=== PATIENT | female | born 1945 | race Caucasian/White ===

== ENCOUNTER 2017-07-25 14:24 | Emergency (ER) | payer MEDICARE, BC ==
[2017-07-25] MEDS ORDERED: HYDROmorphone 0.5 MG/0.5 ML Syringe IVPUSH ONE ×2 (15:06→16:31)
[2017-07-25] MEDS ORDERED: Ondansetron 4 MG/2 ML SDV IVPUSH ONE (15:07)
--- NOTE | 2017-07-25 15:12 | EDM.PDOC ---
ED HPI GENERAL MEDICAL PROBLEM - General Chief Complaint: Abdominal Pain Stated Complaint: GALLBLADDER ATTACK?? Time Seen by Provider: 07/25/17 15:09 Source of Information: Reports: Patient History Limitations: Reports: No Limitations - History of Present Illness INITIAL COMMENTS - FREE TEXT/NARRATIVE: pt arrived with pain accross her entire abdoman. On palpation the pain seemes more on the rt side. She did become very sweaty and felt like she could even pass out. Onset: Today, Sudden, Other ( she did have a similar episode 2 weeks ago and it went away and she did not have a roccurrence until now. ) Duration: Hour(s):, Getting Worse Location: Reports: Abdomen Associated Symptoms: Reports: Nausea/Vomiting, Weakness Lower Abdomen Pain Score (Numeric/FACES): 3 - Related Data Allergies Allergy/AdvReac Type Severity Reaction Status Date / Time azithromycin [From Zithromax] Allergy Severe Rash Verified 10/09/13 10:39 cephalexin [Cephalexin] Allergy Severe Rash Verified 10/09/13 10:39 amoxicillin [Amoxicillin] Allergy Mild Rash Verified 10/09/13 10:39 Penicillins Allergy Rash Verified 10/09/13 10:39 Sulfa (Sulfonamide Allergy Rash Verified 10/09/13 10:39 Antibiotics) Home Meds: Home Meds Aspirin [Adult Low Dose Aspirin EC] 81 mg PO DAILY 10/09/13 [History] Hydrochlorothiazide [Hydrochlorothiazide] 1 tab PO ASDIRECTED 10/09/13 [History] Pravastatin [Pravachol] 1 tab PO BEDTIME 10/09/13 [History] Triamterene/Hydrochlorothiazid [Triamterene-HCTZ 37.5-25 MG] 1 each PO DAILY 01/15 [History] Loratadine [Claritin] 1 tab PO DAILY 07/25/17 [History] Metoprolol Succinate [Toprol XL] 1 tab PO DAILY 07/25/17 [History] Naltrexone HCl/Bupropion HCl [Contrave ER 8-90 mg Tablet] 2 tab PO BID 07/25/17 [History] Omeprazole 1 tab PO DAILY 07/25/17 [History] Past Medical History HEENT History: Reports: Impaired Vision Cardiovascular History: Reports: High Cholesterol, Hypertension Respiratory History: Reports: Bronchitis, Recurrent, Pneumonia, Recurrent Gastrointestinal History: Reports: GERD [employer]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: Musculoskeletal History: Reports: Fracture - Past Surgical History HEENT Surgical History: Reports: Tonsillectomy GI Surgical History: Reports: Colonoscopy Musculoskeletal Surgical History: Reports: Ganglion Cyst Social & Family History - Tobacco Use Smoking Status *Q: Never Smoker - Recreational Drug Use Recreational Drug Use: No ED ROS GENERAL - Review of Systems Review Of Systems: See Below Constitutional: Reports: No Symptoms, Decreased Appetite HEENT: Reports: No Symptoms Respiratory: Reports: No Symptoms Cardiovascular: Reports: No Symptoms Endocrine: Reports: No Symptoms GI/Abdominal: Reports: Abdominal Pain, Other ( Pt has severe abdomanal pain accross the lower abdoman. ) : Reports: No Symptoms Musculoskeletal: Reports: No Symptoms Skin: Reports: No Symptoms ED EXAM, GI/ABD - Physical Exam Exam: See Below Text/Narrative:: pt arrived with pain in the lower abdoman. She states it comes on suddenly and is very severe. She feels like it goes accross the entire abdoman. Exam Limited By: No Limitations General Appearance: Alert, Anxious, Severe Distress, Other ( Pt was very diaphoretic when the pain was present. ) Ears: Normal TMs Nose: Normal Inspection Throat/Mouth: Normal Inspection Head: Atraumatic Neck: Normal Inspection Respiratory/Chest: No Respiratory Distress Cardiovascular: Regular Rate, Rhythm GI/Abdominal Exam: Tender, Other (pt has tendernessmore on the rt side. ) (Female) Exam: Deferred Rectal (Female) Exam: Deferred Back Exam: Normal Inspection Extremities: Normal Inspection Neurological: Alert, Oriented, Normal Cognition Course - Vital Signs Last Recorded V/S: Last Vital Signs Temp 35 C L 07/25/17 14:35 Pulse 85 07/25/17 17:32 Resp 16 07/25/17 17:32 BP 152/71 H 07/25/17 17:32 Pulse Ox 97 07/25/17 17:32 - Orders/Labs/Meds Orders: Active Orders 24 hr Category Date Time Status Abdomen Ltd [US] Stat Exams 07/25/17 15:07 Taken Abdomen Pelvis w Cont [CT] Stat Exams 07/25/17 16:22 Taken Iopamidol [Isovue-300 (61%)] Med 07/25/17 16:45 Active 150 ml IV . DIRECTED Sodium Chloride 0.9% [Normal Saline] 1,000 ml Med 07/25/17 16:15 Active IV ASDIRECTED Sodium Chloride 0.9% [Normal Saline] 80 ml Med 07/25/17 16:45 Active IV ASDIRECTED Sodium Chloride 0.9% [Saline Flush] Med 07/25/17 16:32 Active 10 ml FLUSH ASDIRECTED PRN Medication Orders Sodium Chloride (Normal Saline) 1,000 mls @ 999 mls/hr IV ASDIRECTED THOMAS Last Admin: 07/25/17 17:08 Dose: 999 mls/hr Sodium Chloride (Normal Saline) 80 mls @ 3 mls/sec IV ASDIRECTED THOMAS Last Admin: 07/25/17 16:48 Dose: 3 mls/sec Iopamidol (Isovue-300 (61%)) 150 ml IV . DIRECTED THOMAS Last Admin: 07/25/17 16:48 Dose: 150 ml Sodium Chloride (Saline Flush) 10 ml FLUSH ASDIRECTED PRN PRN Reason: Keep Vein Open Last Admin: 07/25/17 16:48 Dose: 10 ml Labs: Laboratory Tests 07/25/17 07/25/17 07/25/17 Range/Units 14:31 14:53 14:53 WBC 7.8 (4.5-11.0) K/uL RBC 5.02 (3.30-5.50) M/uL Hgb 14.7 (12.0-15.0) g/dL Hct 45.1 (36.0-48.0) % MCV 90 (80-98) fL MCH 29 (27-31) pg MCHC 33 (32-36) % Plt Count 260 (150-400) K/uL Neut % (Auto) 75 H (36-66) % Lymph % (Auto) 16 L (24-44) % [place] % (Auto) 6 (2-6) % Eos % (Auto) 2 (2-4) % Baso % (Auto) 0 (0-1) % Sodium (140-148) mmol/L Potassium (3.6-5.2) mmol/L Chloride (100-108) mmol/L Carbon Dioxide (21-32) mmol/L Anion Gap (5.0-14.0) mmol/L BUN (7-18) mg/dL Creatinine (0.6-1.0) mg/dL Est Cr Clr Drug Dosing mL/min Estimated GFR (MDRD) (>60) Glucose (74-106) mg/dL Calcium (8.5-10.1) mg/dL Total Bilirubin (0.2-1.0) mg/dL AST (15-37) U/L ALT (12-78) U/L Alkaline Phosphatase (46-116) U/L C-Reactive Protein 0.64 H (0.0-0.3) mg/dL Total Protein (6.4-8.2) g/dL Albumin (3.4-5.0) g/dL Globulin (2.3-3.5) g/dL Albumin/Globulin Ratio (1.2-2.2) Amylase (25-115) U/L Lipase (73-393) U/L Urine Color Yellow Urine Appearance Clear Urine pH 8.0 (4.5-8.0) Ur Specific [place] 1.015 (1.008-1.030) Urine Protein Negative (NEGATIVE) mg/dL Urine Glucose (UA) Normal (NEGATIVE) mg/dL Urine Ketones Negative (NEGATIVE) mg/dL Urine Occult Blood Negative (NEGATIVE) Urine Nitrite Negative (NEGATIVE) Urine Bilirubin Negative (NEGATIVE) Urine Urobilinogen 1 (NORMAL) mg/dL Ur Leukocyte Esterase Negative (NEGATIVE) Urine RBC 0-5 (0-5) Urine WBC 0-5 (0-5) Ur Epithelial Cells Rare Amorphous Sediment Few Urine Bacteria Rare Urine Mucus Few 07/25/17 07/25/17 Range/Units 14:53 15:08 WBC (4.5-11.0) K/uL RBC (3.30-5.50) M/uL Hgb (12.0-15.0) g/dL Hct (36.0-48.0) % MCV (80-98) fL MCH (27-31) pg MCHC (32-36) % Plt Count (150-400) K/uL Neut % (Auto) (36-66) % Lymph % (Auto) (24-44) % [place] % (Auto) (2-6) % Eos % (Auto) (2-4) % Baso % (Auto) (0-1) % Sodium 144 (140-148) mmol/L Potassium 3.5 L (3.6-5.2) mmol/L Chloride 104 (100-108) mmol/L Carbon Dioxide 31 (21-32) mmol/L Anion Gap 12.5 (5.0-14.0) mmol/L BUN 25 H (7-18) mg/dL Creatinine 1.1 H (0.6-1.0) mg/dL Est Cr Clr Drug Dosing 41.09 mL/min Estimated GFR (MDRD) 49 L (>60) Glucose 108 H (74-106) mg/dL Calcium 9.7 (8.5-10.1) mg/dL Total Bilirubin 0.7 (0.2-1.0) mg/dL AST 20 (15-37) U/L ALT 25 (12-78) U/L Alkaline Phosphatase 95 (46-116) U/L C-Reactive Protein (0.0-0.3) mg/dL Total Protein 6.8 (6.4-8.2) g/dL Albumin 3.7 (3.4-5.0) g/dL Globulin 3.1 (2.3-3.5) g/dL Albumin/Globulin Ratio 1.2 (1.2-2.2) Amylase 76 (25-115) U/L Lipase 89 (73-393) U/L Urine Color Urine Appearance Urine pH (4.5-8.0) Ur Specific [place] (1.008-1.030) Urine Protein (NEGATIVE) mg/dL Urine Glucose (UA) (NEGATIVE) mg/dL Urine Ketones (NEGATIVE) mg/dL Urine Occult Blood (NEGATIVE) Urine Nitrite (NEGATIVE) Urine Bilirubin (NEGATIVE) Urine Urobilinogen (NORMAL) mg/dL Ur Leukocyte Esterase (NEGATIVE) Urine RBC (0-5) Urine WBC (0-5) Ur Epithelial Cells Amorphous Sediment Urine Bacteria Urine Mucus Meds: Medications Generic Name Dose Route Start Last Admin Trade Name Freq PRN Reason Stop Dose Admin Sodium Chloride 1,000 mls @ 999 mls/hr 07/25/17 16:15 07/25/17 17:08 Normal Saline IV 999 mls/hr ASDIRECTED THOMAS Administration Sodium Chloride 80 mls @ 3 mls/sec 07/25/17 16:45 07/25/17 16:48 Normal Saline IV 3 mls/sec ASDIRECTED THOMAS Administration Iopamidol 150 ml 07/25/17 16:45 07/25/17 16:48 Isovue-300 (61%) IV 150 ml . DIRECTED THOMAS Administration Sodium Chloride 10 ml 07/25/17 16:32 11/21/17 16:48 Saline Flush FLUSH 10 ml ASDIRECTED PRN Administration Keep Vein Open Discontinued Medications Generic Name Dose Route Start Last Admin Trade Name Bill PRN Reason Stop Dose Admin Hydromorphone HCl 0.5 mg 07/25/17 15:06 07/25/17 15:16 Dilaudid IVPUSH 07/25/17 15:07 0.5 mg ONETIME ONE Administration Hydromorphone HCl 0.5 mg 07/25/17 16:31 07/25/17 17:11 Dilaudid IVPUSH 07/25/17 16:32 0.5 mg ONETIME ONE Administration Magnesium Citrate 296 ml 07/25/17 17:45 Citrate Of Magnesia PO 07/25/17 17:46 ONETIME ONE Ondansetron HCl 4 mg 07/25/17 15:07 07/25/17 15:12 Zofran IVPUSH 07/25/17 15:08 4 mg ONETIME ONE Administration - Re-Assessments/Exams Free Text/Narrative Re-Assessment/Exam: 07/25/17 16:15 us of the gb was normal. Her crp is mildly elevated. Her creatnine is elevated. She does look on the dry side. Will give a liter of fluid. 07/25/17 17:44 cat scan showed alot of stool present. , no other abnormalities. 07/25/17 17:52 pt had a stool after the cat scan which seemed like a hard plug and she felt better after that. Departure - Departure Time of Disposition: 17:50 Disposition: Home, Self-Care 01 Condition: Fair Clinical Impression: Constipation - Discharge Information Referrals: PCP,None [Primary Care Provider] - Forms: ED Department Discharge Care Plan Goals: push fluids, increase fiber in diet, prunes daily, use miralax as needed. rtc if increased probl. - My Orders Last 24 Hours: My Active Orders 07/25/17 15:07 Abdomen Ltd [US] Stat 07/25/17 16:15 Sodium Chloride 0.9% [Normal Saline] 1,000 ml IV ASDIRECTED 07/25/17 16:22 Abdomen Pelvis w Cont [CT] Stat 07/25/17 16:32 Sodium Chloride 0.9% [Saline Flush] 10 ml FLUSH ASDIRECTED PRN 07/25/17 16:45 Iopamidol [Isovue-300 (61%)] 150 ml IV . DIRECTED Sodium Chloride 0.9% [Normal Saline] 80 ml IV ASDIRECTED - Assessment/Plan Last 24 Hours: My Active Orders 07/25/17 15:07 Abdomen Ltd [US] Stat 07/25/17 16:15 Sodium Chloride 0.9% [Normal Saline] 1,000 ml IV ASDIRECTED 07/25/17 16:22 Abdomen Pelvis w Cont [CT] Stat 07/25/17 16:32 Sodium Chloride 0.9% [Saline Flush] 10 ml FLUSH ASDIRECTED PRN 07/25/17 16:45 Iopamidol [Isovue-300 (61%)] 150 ml IV . DIRECTED Sodium Chloride 0.9% [Normal Saline] 80 ml IV ASDIRECTED
[2017-07-25] MEDS ORDERED: Sodium Chloride 0.9% 1,000 ML IV SCH (16:15)
[2017-07-25] MEDS ORDERED: Sodium Chloride 0.9% 10 ML Syringe FLUSH PRN (16:32)
[2017-07-25] MEDS ORDERED: Sodium Chloride 0.9% 80 ML IV SCH (16:45)
[2017-07-25] MEDS ORDERED: Iopamidol 612 MG/ML 150 ML Bottle IV SCH (16:45)
[2017-07-25] MEDS ORDERED: Magnesium Citrate Solution 296 ML Bottle PO ONE (17:45)
--- NOTE | 2017-07-26 10:08 | US ---
Abdomen Ltd HISTORY: Abdominal pain COMPARISON: None FINDINGS: Diffuse fatty liver. The gallbladder demonstrates no shadowing gallstones. No gallbladder w all thickening. Common bile duct is normal in caliber. Visualized pancreas unremarkable. The right ki dney, inferior vena cava appear normal. No ascites. Impression: 1. Diffuse fatty infiltration the liver. The remainder the study is unremarkable.
== END 2017-07-25 18:06 | disposition home or self-care (01) ==
LOC: JP.ED 14:24
DX: K59.00 Constipation, unspecified (principal); I10 Essential (primary) hypertension; E78.00 Pure hypercholesterolemia, unspecified; Z79.82 Long term (current) use of aspirin; Z79.899 Other long term (current) drug therapy; Z88.0 Allergy status to penicillin; Z88.2 Allergy status to sulfonamides; Z88.1 Allergy status to other antibiotic agents
CPT/HCPCS: 36415; 74177; 76705; 80053; 81001; 82150; 83690; 85025; 86140; 96361; 96374; 96375; 96376; 99283; 99284; J1170; J2405; J7030; J7040; J7050

== ENCOUNTER 2022-05-13 07:04 | Day surgery (SDC) | payer MEDICARE ==
[2022-05-13] MEDS ORDERED: Midazolam 1 MG/ML 2 ML SDV ONE (07:34)
[2022-05-13] MEDS ORDERED: Propofol 200 MG/20 ML SDV ONE (07:34)
[2022-05-13] MEDS ORDERED: fentaNYL 100 MCG/2 ML SDV ONE (07:34)
[2022-05-13] MEDS ORDERED: Sodium Chloride 0.9% 1,000 ML IV SCH (07:45)
== END 2022-05-13 11:29 | disposition home or self-care (01) ==
LOC: JP.SDS 07:04
PROVIDERS: ATTEND Surgery
DX: Z12.11 Encounter for screening for malignant neoplasm of colon (principal); K63.89 Other specified diseases of intestine; I10 Essential (primary) hypertension
CPT/HCPCS: G0121; J2250; J2704; J3010; J7030

== ENCOUNTER 2024-03-30 14:45 | Emergency (ER) | payer MEDICARE ==
[2024-03-30 16:02] LABS: BASOPHILS ABSOLUTE AUTO 0.06 K/uL (0.00-0.10); BASOPHILS PERCENT AUTO 0.8 % (0.1-1.3); EOSINOPHILS PERCENT AUTO 3.8 % (0.0-5.4); HEMATOCRIT 43.3 % (34.3-46.0); HEMOGLOBIN 14.7 g/dL (11.2-15.5); IMMATURE GRAN ABSOLUTE AUTO 0.03 K/uL (0.00-0.23); IMMATURE GRAN PERCENT AUTO 0.4 % (0.0-0.7); LYMPHOCYTES ABSOLUTE AUTO 1.92 K/uL (0.8-3.3); LYMPHOCYTES PERCENT AUTO 24.2 % (11.4-47.7); MEAN CORPUSCULAR HEMOGLOBIN 30.1 pg (31.6-35.5); MEAN CORPUSCULAR HGB CONC 33.9 g/dL (31.6-35.5); MEAN CORPUSCULAR VOLUME 88.5 fL (81.4-99.0); MONOCYTES ABSOLUTE AUTO 0.75 K/uL (0.20-0.90); MONOCYTES PERCENT AUTO 9.4 % (3.3-12.6); NEUTROPHILS ABSOLUTE AUTO 4.89 K/uL (1.0-7.6); NEUTROPHILS PERCENT AUTO 61.4 % (40.0-78.1); PLATELET COUNT,PLT 275 K/uL (130-375); RED BLOOD CELL COUNT 4.89 M/uL (3.77-5.24)
[2024-03-30 16:07] LABS: BASE EXCESS VENOUS 6.9 mm/L; BICARBONATE,VENOUS 31.3 mmol/L; CARBOXYHEMOGLOBIN 2.7 % (0.0-1.6); METHEMOGLOBIN 0.7 %; O2 SATURATION VENOUS 80.3; OXYHEMOGLOBIN 77.6 %; PCO2 VENOUS 44.3 mm/Hg; PH,VENOUS 7.463 (7.350-7.450); PO2 VENOUS 44.5 mm/Hg; TOTAL HEMOGLOBIN 15.4 g/dL (12.0-16.0)
[2024-03-30 16:48] LABS: A/G RATIO 1.1 (1.2-2.2); ALANINE AMINOTRANSFERASE,ALT 27 U/L (12-78); ALBUMIN 3.9 g/dL (3.4-5.0); ALKALINE PHOSPHATASE 88 U/L (46-116); ASPARTATE AMNIOTRANSFERASE,AST 19 U/L (15-37); BILIRUBIN TOTAL 0.7 mg/dL (0.2-1.0); BLOOD UREA NITROGEN,BUN 21 mg/dL (7-18); CARBON DIOXIDE,CO2 31 mmol/L (21-32); CHLORIDE,CL 102 mmol/L (100-108); CREATININE 1.1 mg/dL (0.6-1.0); EST CRCL DRUG DOSING (CG) 34.41 mL/min; ESTIMATED GFR 52 mL/min (>60); GLUCOSE RANDOM 141 mg/dL (74-106); PROTEIN TOTAL,TP 7.4 g/dL (6.4-8.2); SODIUM,NA 142 mmol/L (140-148); TROPONIN I HIGH SENSITIVITY 10.7 pg/mL (<=60.3)
== END 2024-03-30 17:42 | disposition home or self-care (01) ==
LOC: JP.ED 14:45
DX: R00.0 Tachycardia, unspecified (principal); E87.6 Hypokalemia; E78.00 Pure hypercholesterolemia, unspecified; I10 Essential (primary) hypertension; J45.909 Unspecified asthma, uncomplicated; K21.9 Gastro-esophageal reflux disease without esophagitis; E66.9 Obesity, unspecified; Z68.41 Body mass index [BMI] 40.0-44.9, adult; Z79.899 Other long term (current) drug therapy; Z79.82 Long term (current) use of aspirin; Z88.0 Allergy status to penicillin; Z88.1 Allergy status to other antibiotic agents
CPT/HCPCS: 36415; 80053; 80307; 82803; 83735; 84443; 84484; 85025; 93005; 99285